=== PATIENT | female | born 1955 | race Caucasian/White ===

== ENCOUNTER 2017-05-13 07:53 | Day surgery (SDC) | payer OTHER ==
[2017-05-13] MEDS ORDERED: LACTATED RINGERS 1,000 ML IV ONE (08:08)
[2017-05-13] MEDS ORDERED: MIDAZOLAM 2 MG/2 ML VIAL IVP ONE (09:10)
[2017-05-13] MEDS ORDERED: fentaNYL 100 MCG/2 ML VIAL IVP ONE (09:10)
[2017-05-13 09:53] VITALS: BP 133/56
--- NOTE | 2017-05-13 11:39 | PROCEDURE REPORT ---
DATE OF PROCEDURE: 05/13/2017 00:00:00 PROCEDURE PERFORMED: Colonoscopy. ENDOSCOPIST: Anthony Alexander MD PRIMARY CARE: Annette Bui MD INDICATION: Family history of colon cancer in father, cousin and a maternal grandfather. PREMEDICATIONS: Fentanyl 200 mcg, Versed 6 mg IV titration. Total sedation time 24 minutes. After informed consent was obtained, the patient was placed in left lateral decubitus position. The video colonoscope was introduced into the rectum and slowly advanced to the cecum. On slow withdrawal, mucosa was carefully examined. The scope was removed. The patient tolerated the procedure well. BLOOD LOSS: None. COMPLICATIONS: None. FINDINGS 1. Scattered diverticulosis throughout the entire colon, but more on the left with small diverticula. 2. Otherwise negative colonoscopy to cecum. The patient really should have followup colonoscopy in 5 years given strong family history. JOB #: [id number] EXT JOB #:[id number]
== END 2017-05-13 07:54 | disposition home or self-care (01) ==
LOC: SDS 07:53
PROVIDERS: ATTEND Internal Medicine Gastroenterology
PROC: 0DJD8ZZ Inspection of Lower Intestinal Tract, Via Natural or Artificial Opening Endoscopic (ICD-10-PCS; principal; 2017-05-13 09:00)
DX: Z12.11 Encounter for screening for malignant neoplasm of colon (principal); Z80.0 Family history of malignant neoplasm of digestive organs; K57.30 Diverticulosis of large intestine without perforation or abscess without bleeding
CPT/HCPCS: 45378; J7120

== ENCOUNTER 2019-08-31 12:30 | Outpatient (CLI) | payer MEDICARE, OTHER ==
--- NOTE | 2019-08-31 14:42 | Mammography Report ---
Reason: ROUTINE MAMMO Procedure Date: 08/31/2019 Accession Number: [id number] / [id number] Procedure: MGN - Screening Mammo Dig Bilat CPT Code: FULL RESULT: EXAM: Screening Mammo Dig Bilat DATE: 08/31/2019 12:52 PM CLINICAL HISTORY: Routine screening. No reported personal or family history of breast cancer. TECHNIQUE: (B) - Bilateral CC and MLO views were obtained. COMPARISON: 12/17/2015 through 06/16/2013 PARENCHYMAL PATTERN: (A) - The breasts demonstrate scattered fibroglandular densities bilaterally. FINDINGS: Bilateral breasts: There are no suspicious masses, calcifications, or areas of distortion. IMPRESSION: Negative examination. BI-RADS category 1. RECOMMENDATION: (ANNUAL) - Recommend routine annual screening mammography. BI-RADS CATEGORY: (1) - Negative. STANDARD QUALIFYING STATEMENTS: 1. This examination was not reviewed with the aid of Computer-Aided Detection (CAD). 2. A negative or benign imaging report should not preclude biopsy if clinically suspicious findings are present. 3. Dense breasts may obscure an underlying neoplasm. 4. This examination was reviewed without the aid of 3D breast imaging (tomosynthesis).
== END 2019-08-31 12:31 | disposition home or self-care (01) ==
LOC: DI.N 12:30
DX: Z12.31 Encounter for screening mammogram for malignant neoplasm of breast (principal)
CPT/HCPCS: 77067

== ENCOUNTER 2021-07-24 08:45 | Outpatient (CLI) | payer MEDICARE, OTHER ==
--- NOTE | 2021-07-25 13:21 | Mammography Report ---
BILATERAL DIGITAL SCREENING MAMMOGRAM 3D/2D: 07/24/2021 CLINICAL: Routine screening. Comparison is made to exams dated: 09/10/2019 mammogram, 12/17/2015 mammogram, and 07/12/2014 mammogra m - [facility]. There are scattered fibroglandular elements in both breasts. No significant masses, calcifications, or other findings are seen in either breast. There has been no significant interval change. IMPRESSION: NEGATIVE There is no mammographic evidence of malignancy. A 1 year screening mammogram is recommended. This exam was interpreted at Station ID: [id number]. NOTE: For mammograms, a report in lay terms will be sent to the patient. Approximately 15% of breast malignancies will not be visualized mammographically. In the management of a palpable breast mass, a negative mammogram must not discourage biopsy of a clinically suspicious lesion. Electronically Signed By: Ambreen arreola/gamalrad:07/24/2021 13:21:10 ACR BI-RADS Category 1: Negative 3341F PARENCHYMAL PATTERN: (A) - The breast(s) demonstrate(s) scattered fibroglandular densities. BI-RADS CATEGORY: (1) - 1 RECOMMENDATION: (ANNUAL) - Recommend routine annual screening mammography. [id number] 1 year screening LATERALITY: (B)
== END 2021-07-24 08:46 | disposition home or self-care (01) ==
LOC: MERGE 08:45 → DI.N 08:45
DX: Z12.31 Encounter for screening mammogram for malignant neoplasm of breast (principal)

== ENCOUNTER 2021-07-24 08:57 | Outpatient (CLI) | payer MEDICARE, OTHER ==
[2021-07-24 12:49] LABS: ALBUMIN 4.3 g/dL (3.2-5.5); ALBUMIN/GLOBULIN RATIO 1.2 (1.0-2.2); ALKALINE PHOSPHATASE 61 IU/L (42-121); ALT ALANINE AMINOTRANSFERASE 30 IU/L (10-60); AST ASPARTATE AMINOTRANSFERASE 30 IU/L (10-42); BILIRUBIN,TOTAL 0.6 mg/dL (0.2-1.0); BUN - BLOOD UREA NITROGEN 14 mg/dL (6-20); CALCIUM 9.9 mg/dL (8.5-10.3); CARBON DIOXIDE - CO2 27 mmol/L (21-32); CHLORIDE 107 mmol/L (101-111); CHOL/HDL RATIO 2.9 (<4.4); CHOLESTEROL 265 mg/dL; CREATININE 0.7 mg/dL (0.4-1.0); GFR - MDRD 83 (>89); GLUCOSE 93 mg/dL (70-100); HDL CHOLESTEROL 90 mg/dL; LDL CHOLESTEROL,CALCULATED 157 mg/dL; LDL/HDL RATIO 1.7 (<4.4); POTASSIUM 4.7 mmol/L (3.5-5.0); SODIUM 141 mmol/L (135-145); TRIGLYCERIDES 91 mg/dL; VLDL CHOLESTEROL 18 mg/dL
== END 2021-07-24 08:58 | disposition home or self-care (01) ==
LOC: LAB.N 08:57 → MERGE 08:57 → LAB.N 08:58
PROVIDERS: ATTEND Family Medicine
DX: I10 Essential (primary) hypertension (principal)
CPT/HCPCS: 36415; 80053; 80061; 82043; 82570; 83721

== ENCOUNTER 2022-07-25 10:48 | Outpatient (CLI) | payer MEDICARE, OTHER ==
--- NOTE | 2022-07-25 17:27 | DEXA Report ---
PROCEDURE: Dexa Spine and/or Hip INDICATIONS: POST MENOPAUSAL TECHNIQUE: Dual energy x-ray absorptiometry (DXA) was performed on a NXT-ID System. Regions measur ed are the AP Spine, femoral neck, and if needed forearm. COMPARISON: None. FINDINGS: Lumbar Spine: Bone Mineral Density 1.045 g/cm/cm,T score -1.1. Left Hip: Bone Mineral Density 0.861 g/cm/cm,T score -1.2. Left Femoral Neck: Bone Mineral Density 0.881 g/cm/cm, T score -1.1. (T score greater or equal to -1.0: NORMAL) (T score from -1.1 to -2.4: OSTEOPENIA) (T score less than or equal to -2.5 to: OSTEOPOROSIS) Impression: Osteopenia. Patients with diagnosis of osteoporosis or osteopenia should have regular bone mineral density assess ment. For those eligible for Medicare, routine testing is allowed once every 2 years. Testing frequ ency can be increased for patients who have rapidly progressing disease or for those who are receivin g medical therapy to restore bone mass. Reviewed by: Talha Rivas MD on 07/25/2022 5:26 PM PDT Approved by: Talha Rivas MD on 07/25/2022 5:26 PM PDT Station ID: [id number]
== END 2022-07-25 10:49 | disposition home or self-care (01) ==
LOC: DI 10:48
PROVIDERS: ATTEND Physician Assistant
DX: Z13.820 Encounter for screening for osteoporosis (principal); M85.89 Other specified disorders of bone density and structure, multiple sites; Z78.0 Asymptomatic menopausal state

== ENCOUNTER 2022-07-25 10:50 | Outpatient (CLI) | payer MEDICARE, OTHER ==
--- NOTE | 2022-07-29 10:24 | Mammography Report ---
BILATERAL DIGITAL SCREENING MAMMOGRAM 3D/2D: 07/25/2022 CLINICAL: Routine screening. Comparison is made to exams dated: 07/24/2021 mammogram, 09/10/2019 mammogram, 12/17/2015 mammogram, mammogram, and 06/16/2013 mammogram - [facility]. There are scattered areas of fibroglandular density in both breasts (category b / 25%-50% glandular t issue). No significant masses, calcifications, or other findings are seen in either breast. There has been no significant interval change. IMPRESSION: NEGATIVE There is no mammographic evidence of malignancy. A 1 year screening mammogram is recommended. Based on the Tyrer Cuzick model (a risk assessment model) the patients lifetime risk is 5.4% and her 10 year risk is 3.0%. According to the ACR, ACS, and NCCN guidelines, an annual breast MRI exam mariela g with mammogram is recommended if the patients lifetime risk is 20% or greater. This exam was interpreted at Station ID: [id number]. NOTE: For mammograms, a report in lay terms will be sent to the patient. Approximately 15% of breast malignancies will not be visualized mammographically. In the management of a palpable breast mass, a negative mammogram must not discourage biopsy of a clinically suspicious lesion. Electronically Signed By: Noe gutierrez/agustin:07/25/2022 15:41:20 ACR BI-RADS Category 1: Negative 3341F PARENCHYMAL PATTERN: (A) - The breast(s) demonstrate(s) scattered fibroglandular densities. BI-RADS CATEGORY: (1) - 1 RECOMMENDATION: (ANNUAL) - Recommend routine annual screening mammography. [id number] 1 year screening LATERALITY: (B)
== END 2022-07-25 10:51 | disposition home or self-care (01) ==
LOC: DI 10:50
PROVIDERS: ATTEND Physician Assistant
DX: Z12.31 Encounter for screening mammogram for malignant neoplasm of breast (principal); Z78.0 Asymptomatic menopausal state

== ENCOUNTER 2023-12-23 12:38 | Outpatient (CLI) | payer MEDICARE, OTHER ==
--- NOTE | 2023-12-24 15:56 | Mammography Report ---
BILATERAL DIGITAL SCREENING MAMMOGRAM 3D/2D: 12/23/2023 CLINICAL: Routine screening. Comparison is made to exams dated: 07/25/2022 mammogram, 07/24/2021 mammogram, 09/10/2019 mammogram, 11/24 mammogram, 07/12/2014 mammogram, and 06/16/2013 mammogram - [facility]. There are scattered areas of fibroglandular density in both breasts (category b / 25%-50% glandular t issue). No significant masses, calcifications, or other findings are seen in either breast. There has been no significant interval change. IMPRESSION: NEGATIVE There is no mammographic evidence of malignancy. A 1 year screening mammogram is recommended. Based on the Tyrer Cuzick model (a risk assessment model) the patient's lifetime risk is 5.1% and her 10 year risk is 3.0%. According to the ACR, ACS, and NCCN guidelines, an annual breast MRI exam mariela g with mammogram is recommended if the patients lifetime risk is 20% or greater. This exam was interpreted at Station ID: [id number]. NOTE: For mammograms, a report in lay terms will be sent to the patient. Approximately 15% of breast malignancies will not be visualized mammographically. In the management of a palpable breast mass, a negative mammogram must not discourage biopsy of a clinically suspicious lesion. Electronically Signed By: Noe gutierrez/agustin:12/23/2023 18:23:47 letter sent: No_Letter ACR BI-RADS Category 1: Negative 3341F PARENCHYMAL PATTERN: (A) - The breast(s) demonstrate(s) scattered fibroglandular densities. BI-RADS CATEGORY: (1) - 1 Mammogram [id number] 1 year screening LATERALITY: (B)
== END 2023-12-23 12:39 | disposition home or self-care (01) ==
LOC: DI.N 12:38
PROVIDERS: ATTEND Family Medicine
DX: Z12.31 Encounter for screening mammogram for malignant neoplasm of breast (principal); R92.323 Mammographic fibroglandular density, bilateral breasts